=== PATIENT | male | born 1935 | race Caucasian/White ===

== ENCOUNTER 2016-07-29 04:25 | Inpatient (IN) | payer MEDICARE, BC ==
[~2016-07-29 04:25] MED LIST: ALBUTEROL SULF8.5 G1 IH; AMARYL4 M1 PO; ASPIR 8181 MG; ASPIRIN EC81 MG PO; B COMPLETE1 EACH PO; BETAPACE AF80 MG PO; BETAPACE80 M2 PO; BETAPACE80 MG PO; CALCIUM 600 +1 EAC5 PO; CALCIUM600 MG PO; CARDURA8 MG PO; COUMADIN1 M1 PO; COUMADIN10 MG PO; COUMADIN4 MG PO; COUMADIN6 M1 PO; COZAAR50 MG PO; CULTURELLE1 CA1 PO; DOXAZOSIN MESYLA8 MG; FISH OIL 1,2001 EAC5 PO; FISH OIL1 CAP; FLAX OIL1000 MG PO; FLAX SEED PO; FLOMAX0.4 M1 PO; FLOMAX0.4 MG; GLIMEPIRIDE2 MG; GLIMEPIRIDE2 MG PO; GLUCOPHAGE1000 M1 PO; GLUCOPHAGE1000 MG PO; GLUCOPHAGE500 MG PO; ISOSORBIDE MONO30 M1 PO; ISOSORBIDE MONO30 MG; JANUVIA100 MG PO; LISINOPRIL20 MG; MAGNESIUM400 M1 PO; MEN'S DAILY FOR1 CAP PO; METFORMIN HCL1000 M1 PO; METFORMIN HCL500 PO; METOPROLOL TART25 MG; MULTIVITAMIN1 CAP; NORCO 5/325 TAB1 TAB PO; NORVASC2.5 MG PO; OMEPRAZOLE40 M2 PO; ONGLYZA5 MG PO; PRANDIN2 MG; PRAVACHOL40 MG; PROSCAR5 M1 PO; SYMBICORT 16010.2 GM IH; SYNTHROID125 MC1 PO; SYNTHROID50 MCG PO; SYSTANE BALANCE10 ML OP; TESTOSTERON IM; TRADJENTA5 MG PO; TRIGLIDE160 M1 PO; TURMERIC500 MG PO; TYLENOL EXTRA500 M1 PO; VITAMIN D-32000 UNI4 PO; WARFARIN SODIU2.5 MG PO; ZETIA10 MG; ZETIA10 MG PO; [UNRECOGNIZED DRUG - OTHER] PO
[2016-07-29 06:07] LABS: INR 2.1 INR (0.9-1.1); PROTHROMBIN TIME 24.9 SECONDS (9.0-13.6)
[2016-07-29 06:08] LABS: BASO % 0.2 % (0-2); EOSINOPHIL ABSOLUTE COUNT 0.1 tho/cmm (0.0-0.7); HCT-HEMATOCRIT 39.3 % (36.0-53.5); HGB-HEMOGLOBIN 13.9 gm/dl (13.5-17.0); IMMATURE GRANULOCYTES ABSOLUTE 0.05 tho/cmm (0-0.03); IMMATURE GRANULOCYTES PERCENT 0.4 % (0-0.3); LYMPH % 11.1 % (20-45); LYMPH ABSOLUTE COUNT 1.2 tho/cmm (0.8-4.5); MCH (MEAN CORPUSCULAR HGB) 28.6 pg (28.0-32.0); MCHC MEAN CORPUSCULAR HGB CONC 35.4 % (32.0-36.0); MCV (MEAN CELL VOLUME) 80.9 fl (82.0-96.0); MEAN PLATELET VOLUME 9.2 cmc (9.4-12.4); MONO % 5.1 % (0-12); MONOCYTE ABSOLUTE COUNT 0.6 tho/cmm (0.0-1.2); NEUTROPHIL ABSOLUTE COUNT 9.1 tho/cmm (1.6-8.0); NEUTROPHIL-AUTOMATED 9.1 tho/cmm (1.6-8.0); NEUTROPHILS % 82.2 % (40-80); PLATELET COUNT 132 tho/cmm (150-450); RED BLOOD COUNT 4.86 mil/cmm (4.40-5.70); RED CELL DISTRIBUTION WIDTH 13.7 % (12.4-16.4); WHITE BLOOD COUNT 11.1 tho/cmm (4.0-10.0)
[2016-07-29 06:23] LABS: ALB/GLOB RATIO 0.9 (0.8-2.0); ALBUMIN 4.1 g/dl (3.5-5.0); ALKALINE PHOSPHATASE 104 U/L (33-138); ALT/SGPT 30 U/L (12-78); BILIRUBIN,TOTAL 0.5 mg/dl (0.0-1.5); BLOOD UREA NITROGEN 51 mg/dl (6-24); CALCIUM 9.6 mg/dl (8.5-10.5); CARBON DIOXIDE-VENOUS 25 mmol/L (22-32); CHLORIDE 103 mmol/l (96-110); CREATININE 1.86 mg/dl (0.60-1.30); GLUCOSE 262 mg/dL (70-110); LIPASE 249 U/L (73-393); SODIUM 138 mmol/L (135-145); eGFR VALUE FOR BLACK 39 mL/Min
[2016-07-29 06:38] LABS: ANION GAP 15 mmol/L (0-20); AST/SGOT 21 U/L (10-40)
[2016-07-29] MEDS ORDERED: JANUVIA100 M1 PO (14:48)
[2016-07-29] MEDS ORDERED: COZAAR50 M1 PO (14:48)
[2016-07-30 05:10] LABS: INR 2.2 INR (0.9-1.1); PROTHROMBIN TIME 26.2 SECONDS (9.0-13.6)
[2016-07-30 05:15] LABS: BLOOD UREA NITROGEN 31 mg/dl (6-24); CALCIUM 8.1 mg/dl (8.5-10.5); CARBON DIOXIDE-VENOUS 25 mmol/L (22-32); CHLORIDE 111 mmol/l (96-110); SODIUM 143 mmol/L (135-145); eGFR VALUE FOR BLACK 64 mL/Min
[2016-07-30 05:16] LABS: ANION GAP 11 mmol/L (0-20); CREATININE 1.24 mg/dl (0.60-1.30); GLUCOSE 77 mg/dL (70-110); POTASSIUM 3.8 mmol/L (3.7-5.1)
[2016-07-30] MEDS ORDERED: TRESIBA FL100 UNIT/1 SC (13:18)
== END 2016-07-30 13:50 | DRG 389 ==
LOC: EDMED 04:25 → EMR2 09:32 → 5WE 10:40
PROVIDERS: Emergency Medicine; ADMIT Family Medicine
PROC: 02HV33Z Insertion of Infusion Device into Superior Vena Cava, Percutaneous Approach (ICD-10-PCS; principal; 2016-07-29)
DX: K56.5 Intestinal adhesions [bands] with obstruction (postinfection) (principal); I48.1 Persistent atrial fibrillation; E11.22 Type 2 diabetes mellitus with diabetic chronic kidney disease; I25.10 Atherosclerotic heart disease of native coronary artery without angina pectoris; I48.91 Unspecified atrial fibrillation; I12.9 Hypertensive chronic kidney disease with stage 1 through stage 4 chronic kidney disease, or unspecified chronic kidney disease; E03.9 Hypothyroidism, unspecified; N18.3 Chronic kidney disease, stage 3 (moderate); K43.9 Ventral hernia without obstruction or gangrene; Z95.1 Presence of aortocoronary bypass graft; Z79.01 Long term (current) use of anticoagulants; Z90.49 Acquired absence of other specified parts of digestive tract; Z85.528 Personal history of other malignant neoplasm of kidney; Z90.5 Acquired absence of kidney; Z79.4 Long term (current) use of insulin; Z88.0 Allergy status to penicillin; Z88.8 Allergy status to other drugs, medicaments and biological substances
CPT/HCPCS: C1751; C9113; J1815; J2270; J7030